=== PATIENT | female | born 1940 | race Caucasian/White ===

== ENCOUNTER 2016-12-20 13:26 | Outpatient (CLI) | payer OTHER | END 2016-12-20 18:07 | disposition home or self-care (01) | LOC: SRD 13:26 | PROVIDERS: ATTEND Family Medicine | DX: Z01.818 Encounter for other preprocedural examination (principal); R05 Cough; M47.894 Other spondylosis, thoracic region; M54.2 Cervicalgia | CPT/HCPCS: 71020-TC ==

== ENCOUNTER 2017-01-14 21:14 | Inpatient (IN) | payer OTHER ==
[~2017-01-14] VITALS: Ht 152.4 cm; Wt 78.5 kg
[2017-01-14 21:24] VITALS: BP 138/90; PULSE 98; RESP 14; TEMP 98.8; O2SAT 97
--- NOTE | 2017-01-14 21:48 | NUR ---
Pt accompanied to ED with c/o neck pain 05/02 and difficulty swallowing. Pt stated she had cervical lobectomy, was discharged from [facility] last . Pt stated that she was unable to swallow and unable to take PO medication. Incision site at R anterior neck appeared dry, approximated, no discharge noted.Denies any numbness or tingling at all extremities. A&Ox4, denies SOB or chestpain, denies N/V/D. Will continue to monitor
--- NOTE | 2017-01-14 21:48 | NUR ---
Patient to ER bed 3 to gown for evaluation. Side rails up. Report given to BLAS Mike.
--- NOTE | 2017-01-14 23:07 | NUR ---
MD Ro at bedside examining pt
[2017-01-14] MEDS ORDERED: NACL 0.9% 1,000 ML IV ONE (23:15)
[2017-01-14] MEDS ORDERED: KETOROLAC TROMETHAMINE 30 MG VIAL IVP ONE (23:15)
[2017-01-14 23:36] LABS: BASOPHILS # (AUTO) 0.1 K/uL (0.0-0.2); BASOPHILS % (AUTO) 0.5 % (0.0-2.0); EOSINOPHILS # (AUTO) 0.1 K/uL (0.0-0.4); EOSINOPHILS % (AUTO) 0.5 % (0.0-4.0); HEMATOCRIT 43.3 % (36-48); HEMOGLOBIN 14.3 g/dL (12.0-16.0); LYMPHOCYTES % (AUTO) 8.6 % (20.5-51.5); MEAN CORPUSCULAR HEMOGLOBIN 32 pg (27-31); MEAN CORPUSCULAR HGB CONC 33 % (32-36); MEAN CORPUSCULAR VOLUME 96 fL (79.0-98.0); MONOCYTES # (AUTO) 0.9 K/uL (0.0-1.0); MONOCYTES % (AUTO) 7.8 % (1.7-9.3); NEUTROPHILS # (AUTO) 9.7 K/uL (1.8-7.7); NEUTROPHILS % (AUTO) 82.6 % (40.0-70.0); PLATELET COUNT (AUTO) 358 K/uL (130-430); RED BLOOD CELL COUNT(AUTO) 4.54 MIL/uL (4.2-6.2); RED CELL DISTRIBUTION WIDTH 12.6 % (9.0-15.0); WHITE BLOOD COUNT (AUTO) 11.8 K/uL (4.8-10.8)
[2017-01-14 23:39] LABS: ANION GAP 7 (5-15); CALCIUM 9.8 mg/dL (8.4-11.0); CHLORIDE 103 mmol/L (98-107); CREATININE 0.76 mg/dL (0.55-1.30); GLUCOSE 145 mg/dL (70-99); SODIUM SERUM 140 mmol/L (136-145); UREA NITROGEN, BLOOD 13 mg/dL (8-21)
[2017-01-14 23:43] LABS: POTASSIUM 2.9 mmol/L (3.5-5.1)
[2017-01-14 23:44] LABS: ALANINE AMINOTRANSFERASE 25 U/L (12-78); ALBUMIN 3.1 g/dL (3.4-4.8); ASPARTATE AMINOTRANSFERASE 16 U/L (10-37); TOTAL BILIRUBIN 0.5 mg/dL (0.0-1.0); TOTAL PROTEIN, SERUM 8.1 g/dL (6.4-8.3)
[2017-01-14] MEDS ORDERED: POTASSIUM CHLORIDE 40 MEQ in NS 250 ML IV ONE (23:45)
[2017-01-15] MEDS ORDERED: KCL 20 mEq in 100 mL (PREMIX) 200 ML IV ONE (00:20)
--- NOTE | 2017-01-15 00:55 | NUR ---
Medication reconciliation completed with information provided by pt. Any prior medication reconciliation on file was reviewed and corrected.
[2017-01-15] MEDS ORDERED: NACL 0.9% 1,000 ML IV ONE (01:00)
[2017-01-15] MEDS ORDERED: AZITHROMYCIN 500 MG in NS 250 ML IV ONE (01:00)
[2017-01-15] MEDS ORDERED: EZET1TAB29 PO (01:02)
[2017-01-15] MEDS ORDERED: LEVO88TA2 PO (01:02)
[2017-01-15] MEDS ORDERED: HYDR12.55 PO (01:02)
[2017-01-15] MEDS ORDERED: MONT10TA22 PO (01:02)
[2017-01-15] MEDS ORDERED: GLU500 PO (01:02)
[2017-01-15] MEDS ORDERED: ESTR0.623 PO (01:02)
[2017-01-15] MEDS ORDERED: LORA-258 PO (01:02)
--- NOTE | 2017-01-15 01:16 | NUR ---
Admission Note Received patient from ER with diagnosis of Pneumonia. Initial Plan of Care discussed-patient verbalized understanding. Family at bedside. Oriented to room, call light, pain management and safety.
--- NOTE | 2017-01-15 01:20 | NUR ---
initial nursing notes: Patient is awake. Patient has IV Potassium infusing on the left hand IV access. Patient is wearing a neck brace. Patient stated that she recently had neck surgery due to pinched nerve at the back of her neck. Patient denies of having pain.
[2017-01-15 01:28] VITALS: BP 131/76; PULSE 85; RESP 20; TEMP 97.6; O2SAT 94
--- NOTE | 2017-01-15 01:33 | NUR ---
Patient will be admitted to care of Dr. Flores. Admitted to MS unit. Will go to room 100A. Summary report printed. Report given to BLAS MAHMOOD.
[2017-01-15] MEDS ORDERED: AZITHROMYCIN 500 MG/VIAL (ZITHROMAX) IV ONE (02:02)
--- NOTE | 2017-01-15 03:20 | NUR ---
nursing rounds: Patient is ambulatory to the bathroom with a steady gait. No falls and no injuries noted.
[2017-01-15 04:13] VITALS: BP 123/60; PULSE 76; RESP 18; TEMP 97; O2SAT 98
--- NOTE | 2017-01-15 05:20 | NUR ---
nursing rounds: Patient is asleep. Patient has no shortness of breath.
--- NOTE | 2017-01-15 06:56 | NUR ---
paged dr. ramirez dialed [phone] spoke with christina
--- NOTE | 2017-01-15 07:15 | NUR ---
paged dr. ramirez dialed [phone] spoke with jorje
--- NOTE | 2017-01-15 07:20 | NUR ---
closing nursing notes: Patient is awake, alert and oriented X 4. Patient is in no acute respiratory distress. No episodes of fall and no injuries throughout the assembler 1st shift. Provided nursing report to incoming morning shift nurse, BLAS Pires, at patient's bedside.
[2017-01-15 08:00] VITALS: BP 120/65; PULSE 78; RESP 18; TEMP 98; O2SAT 97
--- NOTE | 2017-01-15 08:00 | NUR ---
initial notes rec patient asleep but arousable to stimuli. ivf infusing well on the r hand. no infiltration noted. with a cervical collar and c/o of unable to swallow and pain on her lateral mid abd area. dr ramirez was called and waiting to call back. ambulates with min assists to the br and saeed well. bed in low position and side rails up and locked. call light within reached and knows when to call for assistance.
[2017-01-15] MEDS ORDERED: KETOROLAC TROMETHAMINE 15 MG VIAL IVP ONE (10:00)
--- NOTE | 2017-01-15 10:00 | NUR ---
rounds medicated as ordered for pain and went to sleep. no sob noted.
--- NOTE | 2017-01-15 12:00 | NUR ---
rounds at the bedside and assisting patient with her adl. denies pain at this time. no sob noted.
[2017-01-15 12:26] VITALS: BP 127/66; PULSE 78; RESP 18; TEMP 98.6; O2SAT 96
--- NOTE | 2017-01-15 14:00 | NUR ---
rounds sleeping soundly when rounds made. no sob noted.no acute distress. call light within reached.
--- NOTE | 2017-01-15 16:00 | NUR ---
rounds seen by dr ramirez and with orders. no c/o pain. sleeping at intervals. call light within reached.
--- NOTE | 2017-01-15 16:25 | NUR ---
Paged Dr Flores for medication order and diet order
[2017-01-15 16:47] VITALS: BP 151/76; PULSE 89; RESP 17; TEMP 97.2; O2SAT 94
--- NOTE | 2017-01-15 17:53 | NUR ---
Swallow Eval: called and left message for Sangita regarding swallow eval order from Dr. Flores.
[2017-01-15] MEDS: D5/0.45 NS 1,000 ML IV SCH (18:13)
[2017-01-15] MEDS: MORPHINE 2 MG/ML INJ. SYRINGE IVP PRN ×2 (18:22→22:37)
--- NOTE | 2017-01-15 18:23 | NUR ---
closing notes medicated with morphine . no acute distress. ambulates to the br at intervals assisted by the . will endorsed to night nurse.
--- NOTE | 2017-01-15 20:00 | NUR ---
Initial note A/O x 3, no SOB, no chest pain, c/o mild pain (3/10) at back. Skin warm to touch, incision at anterior neck noted, collar in use. IV #22 at R hand, continued D5 1/2 NS @ 80 ml/hr. Patient completed dinner 100%, denied N/V, still have some dry cough. Clear lung sounds, active bowel sounds. +2 radial and pedal pulses palpated, no edema. Educated patient to use call for any concern or questions, and assistance of going to bathroom. All needs met, call light within reach, will continue to monitor patient.
--- NOTE | 2017-01-15 22:00 | NUR ---
Rounds A/O x 3, no SOB, no chest pain, c/o pain at back. Patient is aware that next dose of Morphine will be around 2230. Skin warm to touch, incision at anterior neck noted, collar in use. IV #22 at R hand, continued D5 1/2 NS @ 80 ml/hr. Assisted patient to bathroom x 1, clear yellow urine noted. Call light within reach, will continue to monitor patient.
--- NOTE | 2017-01-15 22:30 | NUR ---
Morphine IVP given for back pain (/).
[2017-01-15 23:12] VITALS: BP 131/17; PULSE 81; RESP 16; TEMP 97; O2SAT 96
--- NOTE | 2017-01-16 02:00 | NUR ---
Rounds Sleeping/resting in bed, no SOB, no chest pain, no grimacing. IV at R hand, patent, continued D5 1/2 NS at 80 ml/hr. Call light within reach, bed at lowest position, will continue to monitor patient.
[2017-01-16 04:26] VITALS: BP 129/85; PULSE 90; RESP 18; TEMP 96.5; O2SAT 97
[2017-01-16] MEDS: MORPHINE 2 MG/ML INJ. SYRINGE IVP PRN (04:32)
[2017-01-16] MEDS: D5/0.45 NS 1,000 ML IV SCH (05:38)
--- NOTE | 2017-01-16 06:00 | NUR ---
Closing note Sleeping in bed, no SOB, no chest pain, no grimacing. IV at R hand, patent, continued D5 1/2 NS at 80 ml/hr. Call light within reach, bed at lowest position, will give report to incoming nurse.
[2017-01-16 07:22] LABS: BASOPHILS % (AUTO) 0.3 % (0.0-2.0); EOSINOPHILS # (AUTO) 0.1 K/uL (0.0-0.4); EOSINOPHILS % (AUTO) 0.6 % (0.0-4.0); HEMATOCRIT 33.2 % (36-48); HEMOGLOBIN 11.4 g/dL (12.0-16.0); LYMPHOCYTES # (AUTO) 0.9 K/uL (1.0-5.5); LYMPHOCYTES % (AUTO) 7.8 % (20.5-51.5); MEAN CORPUSCULAR HEMOGLOBIN 33 pg (27-31); MEAN CORPUSCULAR HGB CONC 35 % (32-36); MEAN CORPUSCULAR VOLUME 95 fL (79.0-98.0); MONOCYTES # (AUTO) 0.8 K/uL (0.0-1.0); MONOCYTES % (AUTO) 7.1 % (1.7-9.3); NEUTROPHILS # (AUTO) 9.3 K/uL (1.8-7.7); NEUTROPHILS % (AUTO) 84.2 % (40.0-70.0); PLATELET COUNT (AUTO) 256 K/uL (130-430); RED BLOOD CELL COUNT(AUTO) 3.51 MIL/uL (4.2-6.2); RED CELL DISTRIBUTION WIDTH 12.6 % (9.0-15.0); WHITE BLOOD COUNT (AUTO) 11.1 K/uL (4.8-10.8)
[2017-01-16 07:28] LABS: ALANINE AMINOTRANSFERASE 17 U/L (12-78); ALBUMIN 2.2 g/dL (3.4-4.8); ANION GAP 9 (5-15); ASPARTATE AMINOTRANSFERASE 12 U/L (10-37); CALCIUM 8.9 mg/dL (8.4-11.0); CHLORIDE 104 mmol/L (98-107); CREATININE 0.68 mg/dL (0.55-1.30); GLUCOSE 168 mg/dL (70-99); SODIUM SERUM 137 mmol/L (136-145); TOTAL BILIRUBIN 0.5 mg/dL (0.0-1.0); TOTAL PROTEIN, SERUM 6.5 g/dL (6.4-8.3); UREA NITROGEN, BLOOD 6 mg/dL (8-21)
[2017-01-16 07:35] LABS: POTASSIUM 2.7 mmol/L (3.5-5.1)
[2017-01-16] MEDS: POTASSIUM CHLORIDE 20 MEQ TAB.PRT.SR PO ONE ×2 (07:45→09:22)
[2017-01-16] MEDS ORDERED: POTASSIUM CHLORIDE 40 MEQ in NS 250 ML IV ONE (07:45)
[2017-01-16 08:00] VITALS: BP 120/82; PULSE 82; RESP 18; TEMP 97; O2SAT 95
--- NOTE | 2017-01-16 08:00 | NUR ---
INITIAL NOTE PT SITTING ON BEDSIDE CHAIR, NO S/S OF DISTRESS NOTED, VSS, IV INFUSING TO RIGHT HAND, SITE PATENT AND INTACT, FLUIDS IN FUSING AT ORDERED RATE, COLLAR NOTED TO NECK, WITH INCISION OPEN TO AIR, PLAN OF CARE DISCUSSED WITH PATIENT, SAFETY MEASURES IN PLACE, CALL LIGHT WITH IN REACH, WILL FOLLOW UP
--- NOTE | 2017-01-16 10:00 | NUR ---
ROUNDS PT REFUSED, PO POTASSIUM DESPITE EDUCATION, IV POTASSIUM INFUSING AT SLOWER TOLERATED RATE. PT SITTING ON SIDE CHAIR, NO S/S OF PAIN, NAUSEA OR VOMITING, CALL LIGHT WITHIN REACH, WILL CONTINUE TO MONITOR.
--- NOTE | 2017-01-16 10:29 | NUR ---
PAGED DR BEE, [facility] [phone]
[2017-01-16] MEDS ORDERED: ONDANSETRON HCL 4 MG/2 ML VIAL IVP PRN (11:00)
[2017-01-16] MEDS ORDERED: CYCLOBENZAPRINE HCL 10 MG TABLET (FLEXERIL) PO ONE (11:15)
[2017-01-16 12:07] VITALS: BP 113/73; PULSE 85; RESP 16; TEMP 97; O2SAT 99
--- NOTE | 2017-01-16 12:15 | NUR ---
DR ROHIT SNIDER
--- NOTE | 2017-01-16 13:55 | NUR ---
S.T. SWALLOW EVAL COMPLETED. GRANDDAUGHTER PRESENT. PT PRESENTS W/ ML-MOD ORAL AND MOD PHARYNGEAL DYSPHAGIA W/ PROLONGED MASTICATION, DELAYED AND EFFORTFUL SWALLOW, AND COUGHING ON THIN LIQUIDS. PT IS AT RISK FOR ASPIRATION. REC: SOFT DIET W/ NECTAR THICK LIQUIDS. VIDEO SWALLOW STUDY. PT TO BE D/C'D TODAY. COMPLETE VIDEO SWALLOW OUTPATIENT. RESULTS AND RECOMMENDATIONS DISCUSSED IN DETAIL W/ PT AND GRANDDAUGHTER. THEY VERBALIZED UNDERSTANDING. NURSE DAMASO NOTIFIED. G8996 CK G8997 CK G8998 CK NOMS LEVEL 4
--- NOTE | 2017-01-16 14:00 | NUR ---
ROUNDS PT SITTING ON SIDE CHAIR, NO S/S OF DISTRESS OR COMPLAINT OF PAIN, IV FLUIDS INFUSING, CALL LIGHT WITHIN REACH, PT AWARE OF PENDING DISCHARGE. WILL CONTINUE TO MONITOR
[2017-01-16 14:23] VITALS: BP 113/73; PULSE 85; RESP 19; TEMP 97; O2SAT 99
[2017-01-16] MEDS ORDERED: DOXY100T2 PO (14:39)
[2017-01-16] MEDS ORDERED: CYCL-10 PO (14:42)
[2017-01-16] MEDS ORDERED: BENZ100C67 PO (14:44)
[2017-01-16 16:03] VITALS: BP 127/79; PULSE 65; RESP 17; TEMP 96.9; O2SAT 96
--- NOTE | 2017-01-16 16:30 | NUR ---
D/C INSTRUCTION, TRANSITIONAL CARE PAPERWORK PROVIDED, PT AWARE THAT SHE IS WAITING FOR HER KRIDER TO COMPLETE AND REPEAT LABS BEFORE DISCHARGE. PT AWARE THAT THE DISCHARGE INSTRUCTIONS INCLUDE PATIENT TO FOLLOW UP WITH PCP AND NEUROSURGEON, MAY CRUSH PILLS AND HAVE THICKENED LIQUIDS, PT VERBALIZED UNDERSTANDING, AT BEDSIDE, WILL CONTINUE TO MONITOR
--- NOTE | 2017-01-16 18:32 | NUR ---
D/C Patient Patient given medication reconciliation form and D/C instructions. Exit Care provided. Patient verbalized understanding. MD discussed with patient the results and treatment provided. Ambulatory with steady gait for discharge to home. Patient in stable condition, ID band removed. IV catheter removed, intact and dressing applied, no active bleeding. Rx of DOXYCYCLIN, ALBUTEROL, FLEXERIL AND TESSALON given. Patient educated on pain management. All belongings sent with patient.
[2017-01-16] MEDS ORDERED: AZITHROMYCIN 500 MG in NS 250 ML IV SCH (21:00)
[2017-01-17] MEDS ORDERED: CYCLOBENZAPRINE HCL 10 MG TABLET (FLEXERIL) PO SCH (09:00)
--- NOTE | 2017-01-24 14:06 | NUR ---
Discharge Follow Up Phone Call RN QUALITY phoned patient, . Patient stated she was improving but was feeling tired. Patient stated she is swallowing better and always has her with her, especially when eating. Patient has appointments made for the end of the month but has not made appointments sooner for post hospital follow up nor done her chem 7 or CBC or swallow test. RN QUALITY stressed the importance of following up with her appointments and the recommendations made by the doctors here. RN QUALITY offered to assist in making the appointments, patient declined. Patient stated she did not want further follow up calls.
== END 2017-01-16 18:32 | disposition home or self-care (01) | DRG 194 ==
LOC: SED 21:14 → SMU 01-15 00:41
DX: J18.9 Pneumonia, unspecified organism (principal); E44.1 Mild protein-calorie malnutrition; E87.6 Hypokalemia; D72.829 Elevated white blood cell count, unspecified; E03.9 Hypothyroidism, unspecified; I10 Essential (primary) hypertension; E11.9 Type 2 diabetes mellitus without complications; F41.9 Anxiety disorder, unspecified; R13.10 Dysphagia, unspecified; Z79.899 Other long term (current) drug therapy; Z68.33 Body mass index [BMI] 33.0-33.9, adult
CPT/HCPCS: 36415; 71010; 71020-TC; 80053; 83605; 84132-TC; 85025; 87040-TC; 87081; 92610-GN; 96374; 99285; J0456; J0696; J1885; J2270; J2405; J3480; J7030; J7050; J7060

== ENCOUNTER 2022-02-03 13:51 | Emergency (ER) | payer BC, OTHER ==
[~2022-02-03] VITALS: Ht 152.4 cm; Wt 74.4 kg
[~2022-02-03 13:51] MED LIST: BENZ-16 PO; CYCL10TA24 PO; DOXY100T2 PO; ESTR0.623 PO; EZET1TAB29 PO; GLU500 PO; LEVO88TA2 PO; LORA-258 PO; MONT10TA22 PO
[2022-02-03 13:53] VITALS: BP_SYST 162
--- NOTE | 2022-02-03 14:00 | NUR ---
BROUGHT BACK TO BED #2 AND TRIAGED. REPORT GIVEN TO LEONELA
--- NOTE | 2022-02-03 14:22 | NUR ---
PT AWAKE AND ALERT X4. VS WNL PT PRESENTS WITH LOWER DULL BACK PAIN X3 DAYS INTERMITTANLY. OF TODAY PAIN IS CONSISTANTLY DULL WITHOUT RELIEF. PMH 2018 BLOOD CLOT SX APENDECTOMY
--- NOTE | 2022-02-03 14:25 | NUR ---
PT AMBULTATED TO RESTROOM NO Urine specimen collected AT THIS TIME.
--- NOTE | 2022-02-03 14:37 | NUR ---
Blood for labwork drawn from [employer]. Patient tolerated WELL.
[2022-02-03 14:50] LABS: BASOPHILS % (AUTO) 0.5 % (0.0-2.0); EOSINOPHILS # (AUTO) 0.2 K/uL (0.0-0.4); EOSINOPHILS % (AUTO) 2.7 % (0.0-4.0); HEMATOCRIT 41.4 % (36-48); HEMOGLOBIN 13.8 g/dL (12.0-16.0); LYMPHOCYTES # (AUTO) 1.6 K/uL (1.0-5.5); LYMPHOCYTES % (AUTO) 21.6 % (20.5-51.5); MEAN CORPUSCULAR HEMOGLOBIN 31 pg (27-31); MEAN CORPUSCULAR HGB CONC 33 % (32-36); MEAN CORPUSCULAR VOLUME 94 fL (79.0-98.0); MONOCYTES # (AUTO) 0.6 K/uL (0.0-1.0); MONOCYTES % (AUTO) 8.3 % (1.7-9.3); NEUTROPHILS # (AUTO) 4.9 K/uL (1.8-7.7); NEUTROPHILS % (AUTO) 66.9 % (40.0-70.0); PLATELET COUNT (AUTO) 260 K/uL (130-430); RED BLOOD CELL COUNT(AUTO) 4.43 MIL/uL (4.2-6.2); RED CELL DISTRIBUTION WIDTH 13.4 % (9.0-15.0); WHITE BLOOD COUNT (AUTO) 7.3 K/uL (4.8-10.8)
[2022-02-03 15:04] LABS: BILIRUBIN,URINE NEGATIVE (NEGATIVE); CLARITY/URINE CLOUDY (CLEAR); COLOR,URINE YELLOW (YELLOW); GLUCOSE,URINE NEGATIVE (NEGATIVE); KETONES,URINE NEGATIVE (NEGATIVE); LEUKOCYTE ESTERASE ,URINE 3+ (NEGATIVE); NITRITE, URINE NEGATIVE (NEGATIVE); PROTEIN URINE 1+ (NEGATIVE); UROBILINOGEN,URINE 0.2 (0.2-1.0)
[2022-02-03 15:05] LABS: BLOOD, URINE TRACE (NEGATIVE)
[2022-02-03 15:07] LABS: ANION GAP 6 (5-15); CALCIUM 10.1 mg/dL (8.4-11.0); CHLORIDE 103 mmol/L (98-107); CREATININE 1.25 mg/dL (0.55-1.30); GLUCOSE 99 mg/dL (70-99); SODIUM SERUM 139 mmol/L (136-145); UREA NITROGEN, BLOOD 29 mg/dL (8-21)
[2022-02-03 15:12] LABS: BACTERIA,URINE FEW /HPF (None Seen); WBC,URINE >100 /HPF (0-3)
[2022-02-03 15:12] LABS: ALANINE AMINOTRANSFERASE 19 U/L (12-78); ASPARTATE AMINOTRANSFERASE 20 U/L (10-37); LIPASE 145 U/L (73-393); TOTAL BILIRUBIN 0.3 mg/dL (0.0-1.0)
[2022-02-03 15:13] LABS: MUCUS,URINE 2+ /LPF (None Seen); OTHER CASTS, URINE WBC CASTS 2+ /LPF (None Seen)
[2022-02-03] MEDS ORDERED: cefTRIAXone 1 GM VIAL ONE (15:24)
[2022-02-03] MEDS ORDERED: cefTRIAXone 1 GM in D5W 50 ML IV ONE (15:30)
[2022-02-03] MEDS ORDERED: MORPHINE 2 MG/ML INJ. SYRINGE IVP ONE (15:30)
[2022-02-03] MEDS ORDERED: CEPH250C PO (16:08)
[2022-02-03] MEDS ORDERED: ACET-2634 PO (16:08)
[2022-02-03] MEDS ORDERED: IBUP-1969 PO (16:08)
--- NOTE | 2022-02-03 16:15 | NUR ---
ER DR. CYR AT THE BEDSIDE EXAMINING PT
[2022-02-03 16:47] VITALS: BP_SYST 144
--- NOTE | 2022-02-03 16:47 | NUR ---
Patient given written and verbal discharge instructions and verbalizes understanding. ER MD discussed with patient the results and treatment provided. Patient in stable condition. ID arm band removed. IV catheter removed intact and dressing applied, no active bleeding. Rx of TYLENOL, KEFLEX, IBROFEN given. Patient educated on pain management and to follow up with PMD. Pain Scale 0/10. Opportunity for questions provided and answered. Medication side effect fact sheet provided.
== END 2022-02-03 16:47 | disposition home or self-care (01) ==
LOC: SED 13:51
DX: N12 Tubulo-interstitial nephritis, not specified as acute or chronic (principal); E07.9 Disorder of thyroid, unspecified; E11.9 Type 2 diabetes mellitus without complications; Z20.822 Contact with and (suspected) exposure to COVID-19
CPT/HCPCS: 36415; 74176; 76376; 80053; 81000; 83690; 85025; 87040; 87086; 87426; 96365; 96375; 99284; J0696; J2270

== ENCOUNTER 2022-02-06 12:46 | Emergency (ER) | payer BC ==
[~2022-02-06] VITALS: Ht 152.4 cm; Wt 73.5 kg
[~2022-02-06 12:46] MED LIST changes: +ACET-2634 PO; +CEPH250C PO; +IBUP-1969 PO
[2022-02-06 13:55] VITALS: BP_SYST 144
--- NOTE | 2022-02-06 13:55 | NUR ---
Pt triaged in waiting room.
--- NOTE | 2022-02-06 13:57 | NUR ---
Pt alert and oriented x 3. Reported was seen here Tuesday for UTI and her sx have not resolved. Main complaint is R lower back pain /; no burning with urination or frequency reported. Pt does report being on Abx and was educated re finishing entire course of meds. Urine cup provided. Awaiting MD romano.
--- NOTE | 2022-02-06 14:26 | NUR ---
Dr Patterson placed orders for patient
[2022-02-06 15:29] LABS: BILIRUBIN,URINE NEGATIVE (NEGATIVE); BLOOD, URINE NEGATIVE (NEGATIVE); CLARITY/URINE SL CLOUDY (CLEAR); COLOR,URINE YELLOW (YELLOW); GLUCOSE,URINE NEGATIVE (NEGATIVE); KETONES,URINE NEGATIVE (NEGATIVE); LEUKOCYTE ESTERASE ,URINE NEGATIVE (NEGATIVE); NITRITE, URINE NEGATIVE (NEGATIVE); PROTEIN URINE NEGATIVE (NEGATIVE); UROBILINOGEN,URINE 0.2 (0.2-1.0)
--- NOTE | 2022-02-06 15:54 | NUR ---
Pt walked ambulatory to rm 1. Gait remains steady. Labs being drawn at bedside per orders. Dr Patterson notified.
--- NOTE | 2022-02-06 16:00 | NUR ---
Dr Patterson to bedside to examine patient
[2022-02-06 16:25] LABS: BASOPHILS # (AUTO) 0.1 K/uL (0.0-0.2); BASOPHILS % (AUTO) 0.8 % (0.0-2.0); EOSINOPHILS # (AUTO) 0.3 K/uL (0.0-0.4); EOSINOPHILS % (AUTO) 3.7 % (0.0-4.0); HEMATOCRIT 41.2 % (36-48); HEMOGLOBIN 13.8 g/dL (12.0-16.0); LYMPHOCYTES # (AUTO) 1.8 K/uL (1.0-5.5); LYMPHOCYTES % (AUTO) 23.5 % (20.5-51.5); MEAN CORPUSCULAR HEMOGLOBIN 31 pg (27-31); MEAN CORPUSCULAR HGB CONC 33 % (32-36); MEAN CORPUSCULAR VOLUME 94 fL (79.0-98.0); MONOCYTES # (AUTO) 0.6 K/uL (0.0-1.0); MONOCYTES % (AUTO) 7.5 % (1.7-9.3); NEUTROPHILS # (AUTO) 4.9 K/uL (1.8-7.7); NEUTROPHILS % (AUTO) 64.5 % (40.0-70.0); PLATELET COUNT (AUTO) 271 K/uL (130-430); RED CELL DISTRIBUTION WIDTH 13.3 % (9.0-15.0); WHITE BLOOD COUNT (AUTO) 7.6 K/uL (4.8-10.8)
[2022-02-06 16:36] LABS: ANION GAP 7 (5-15); CALCIUM 10.4 mg/dL (8.4-11.0); CHLORIDE 101 mmol/L (98-107); CREATININE 1.11 mg/dL (0.55-1.30); GLUCOSE 108 mg/dL (70-99); POTASSIUM 3.4 mmol/L (3.5-5.1); SODIUM SERUM 138 mmol/L (136-145); UREA NITROGEN, BLOOD 20 mg/dL (8-21)
[2022-02-06 16:41] LABS: ALANINE AMINOTRANSFERASE 21 U/L (12-78); ASPARTATE AMINOTRANSFERASE 20 U/L (10-37); TOTAL BILIRUBIN 0.2 mg/dL (0.0-1.0)
--- NOTE | 2022-02-06 17:00 | NUR ---
Before pt eloped, she stated the ER MD (Yseenia) put her mind at ease that her infection is gone. This scientific technical writer educated patient to finish her antibiotic course though she is feeling better. Understanding verbalized.
--- NOTE | 2022-02-06 17:00 | NUR ---
PT ELOPED FROM ER
[2022-02-06 17:07] VITALS: BP_SYST 144
== END 2022-02-06 17:00 | disposition left against medical advice (07) ==
LOC: SED 12:46
DX: R10.9 Unspecified abdominal pain (principal); E11.9 Type 2 diabetes mellitus without complications; E03.9 Hypothyroidism, unspecified; E78.00 Pure hypercholesterolemia, unspecified; R60.9 Edema, unspecified; Z79.84 Long term (current) use of oral hypoglycemic drugs
CPT/HCPCS: 36415; 80053; 81003; 83605; 85025; 85651-TC; 87040; 87086; 99283

== ENCOUNTER → 2022-09-25 | Emergency (ER) | payer BC ==
[~2022-09-25] VITALS: Ht 152.4 cm; Wt 73.5 kg
[2022-09-25 14:37] VITALS: BP_SYST 146
[2022-09-25 16:31] LABS: BASOPHILS # (AUTO) 0.1 K/uL (0.0-0.2); BASOPHILS % (AUTO) 1.2 % (0.0-2.0); EOSINOPHILS # (AUTO) 0.3 K/uL (0.0-0.4); EOSINOPHILS % (AUTO) 4.6 % (0.0-4.0); HEMATOCRIT 39.1 % (36-48); HEMOGLOBIN 13.6 g/dL (12.0-16.0); LYMPHOCYTES # (AUTO) 1.6 K/uL (1.0-5.5); LYMPHOCYTES % (AUTO) 23.9 % (20.5-51.5); MEAN CORPUSCULAR HEMOGLOBIN 32 pg (27-31); MEAN CORPUSCULAR HGB CONC 35 % (32-36); MEAN CORPUSCULAR VOLUME 93 fL (79.0-98.0); MONOCYTES # (AUTO) 0.5 K/uL (0.0-1.0); NEUTROPHILS # (AUTO) 4.2 K/uL (1.8-7.7); NEUTROPHILS % (AUTO) 62.3 % (40.0-70.0); PLATELET COUNT (AUTO) 248 K/uL (130-430); RED CELL DISTRIBUTION WIDTH 13.2 % (9.0-15.0); WHITE BLOOD COUNT (AUTO) 6.7 K/uL (4.8-10.8)
[2022-09-25 17:03] LABS: ANION GAP 6 (5-15); CALCIUM 10.2 mg/dL (8.4-11.0); CHLORIDE 105 mmol/L (98-107); CREATININE 1.35 mg/dL (0.55-1.30); GLUCOSE 103 mg/dL (70-99); UREA NITROGEN, BLOOD 24 mg/dL (8-21)
[2022-09-25 17:11] LABS: ALANINE AMINOTRANSFERASE 18 U/L (12-78); ALBUMIN 3.9 g/dL (3.4-4.8); ASPARTATE AMINOTRANSFERASE 22 U/L (10-37); TOTAL BILIRUBIN 0.3 mg/dL (0.0-1.0)
[2022-09-25 17:14] LABS: BILIRUBIN,URINE NEGATIVE (NEGATIVE); BLOOD, URINE NEGATIVE (NEGATIVE); CLARITY/URINE CLEAR (CLEAR); COLOR,URINE YELLOW (YELLOW); GLUCOSE,URINE 2+ (NEGATIVE); KETONES,URINE NEGATIVE (NEGATIVE); LEUKOCYTE ESTERASE ,URINE NEGATIVE (NEGATIVE); NITRITE, URINE NEGATIVE (NEGATIVE); PROTEIN URINE NEGATIVE (NEGATIVE); UROBILINOGEN,URINE 0.2 (0.2-1.0)
[2022-09-25 17:42] LABS: C-REACTIVE PROTEIN QUANT < 0.2 mg/dL (0-0.5)
== END | disposition home or self-care (01) ==
LOC: SED 14:21
DX: M54.50 Low back pain, unspecified (principal); R33.9 Retention of urine, unspecified; E11.9 Type 2 diabetes mellitus without complications; E78.5 Hyperlipidemia, unspecified; Z79.899 Other long term (current) drug therapy
CPT/HCPCS: 36415; 76376; 80053; 81003; 83605; 85025; 86140; 99284